=== PATIENT | male | born 1965 | race Caucasian/White ===

== ENCOUNTER 2016-08-20 14:47 | Emergency (ER) | payer MEDICARE, SELFPAY ==
[2016-08-20 14:58] VITALS: BP 130/87
[2016-08-20] MEDS ORDERED: Aspirin 81 MG Tab.Chew PO ONE (15:22)
--- NOTE | 2016-08-20 15:26 | EDM.PDOC ---
ED HPI GENERAL MEDICAL PROBLEM - General Chief Complaint: Chest Pain Stated Complaint: JAW AND CHEST PAIN Time Seen by Provider: 08/20/16 15:10 Source of Information: Reports: Patient History Limitations: Reports: No Limitations - History of Present Illness INITIAL COMMENTS - FREE TEXT/NARRATIVE: 51-year-old male presents to the ED with 2 problems. One is diffuse jaw pain for the last 2 weeks particularly noted to be coming from his right temporomandibular joint area. It is very painful and is finding that he can hardly open his jaw at times because of the pain. He presents also for evaluation of left precordial chest discomfort. 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 He is now somewhat better but still present rates it as a 1 /10 left precordium. The nurses have done an ECG which shows sinus rhythm at 76 per minute with a diffuse early repolarization pattern. No obvious ischemia is evident. There is no history of coronary disease. He has never been a smoker. He does not radiate into her shoulder back neck et cetera. Patient denies any recent dental work to account for his temporomandibular joint pain. No blunt trauma to the mandible. Onset: Today (Chest pain today), Other (Pain is been present for about 2 weeks worse in the right side as compared to the left.) Onset Date: 08/20/16 Onset Time: 10:00 Duration: Hour(s):, Constant (Mild.), Improving Location: Reports: Chest (Left lower precordial chest.), Other (Second problem is right inframandibular joint area and mandible.) Quality: Reports: Ache, Pressure Severity: Moderate Improves with: Reports: Other (Not talking or chewing on the right side. Chest pain seems to be better since he stopped working today.) Worsens with: Reports: Other (Jaw pain is worse with talking and with chewing.) Context: Denies: Activity, Exercise, Lifting, Sick Contact, Trauma, Other Associated Symptoms: Reports: Chest Pain. Denies: No Other Symptoms, Confusion (See history of present), Cough, cough w sputum, Diaphoresis, Fever/Chills, Headaches, Loss of Appetite, Malaise, Nausea/Vomiting, Rash, Seizure, Shortness of Breath, Syncope, Weakness Oral/Mouth Pain Score (Numeric/FACES): 8 - Related Data Allergies Allergy/AdvReac Type Severity Reaction Status Date / Time No Known Allergies Allergy Verified 08/20/16 14:58 Home Meds: Home Meds Dexmethylphenidate HCl [Focalin] 10 mg PO DAILY 08/20/16 [History] Meloxicam 15 mg PO DAILY #14 tablet 08/20/16 [Rx] PARoxetine HCl [Paxil] 30 mg PO DAILY 08/20/16 [History] Prednisone [IMW: predniSONE] 20 mg PO ASDIRECTED #15 tab 08/20/16 [Rx] Ziprasidone HCl [Geodon] 60 mg PO BEDTIME 08/20/16 [History] traZODone HCl [Trazodone HCl] 100 mg PO BEDTIME 08/20/16 [History] Past Medical History Musculoskeletal History: Reports: Other (See Below) Other Musculoskeletal History: ruptured disc in upper neck Psychiatric History: Reports: ADD Social & Family History - Family History Family Medical History: Noncontributory - Tobacco Use Smoking Status *Q: Never Smoker - Recreational Drug Use Recreational Drug Use: No - Living Situation & Occupation Living situation: Reports: Single Occupation: Employed ED ROS GENERAL - Review of Systems Review Of Systems: See Below Constitutional: Denies: Fever, Chills, Malaise, Weakness, Fatigue, Night Sweats , Diaphoresis, Decreased Appetite, Weight Loss HEENT: Reports: Ear Pain (Right pain from temporomandibular joint area.) Respiratory: Denies: Shortness of Breath, Wheezing, Pleuritic Chest Pain, Cough , Sputum Cardiovascular: Reports: Chest Pain (See history of present illness left precordial chest discomfort which he describes as a mild heaviness.). Denies: Blood Pressure Problem, Claudication, Dyspnea on Exertion, Edema, Lightheadedness, Orthopnea, Palpitations, PND Endocrine: Reports: No Symptoms GI/Abdominal: Reports: No Symptoms : Reports: No Symptoms Musculoskeletal: Reports: Back Pain (Ashutosh back shoulder) Skin: Reports: No Symptoms ( and knee pain) Neurological: Reports: No Symptoms ED EXAM, GENERAL - Physical Exam Exam: See Below Exam Limited By: No Limitations General Appearance: Alert, WD/WN, No Apparent Distress, Anxious (Mildly anxious. ) Eye Exam: Bilateral Eye: Normal Inspection Ears: Normal External Exam, Other (History impaction in the left ear and I was unable to visualize the tympanic membrane.) Ear Exam: Bilateral Ear: Other (Patient has severe pain on palpation of the right temporomandibular joint area.) Throat/Mouth: Normal Inspection, Normal Lips, Normal Oropharynx, Other (Patient is missing the right lower second and third molars. 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.) Head: Atraumatic, Other Neck: Normal Inspection, Supple, Non-Tender, Full Range of Motion Respiratory/Chest: No Respiratory Distress, Lungs Clear, Normal Breath Sounds, No Accessory Muscle Use, Chest Non-Tender Cardiovascular: Normal Peripheral Pulses, Regular Rate, Rhythm, No Edema, No Gallop, No Murmur, No Rub, Other (No chest wall pain identified.) Peripheral Pulses: 1+: Posterior Tibial (L), Posterior Tibial (R), Dorsalis Pedis (L), Dorsalis Pedis (R), 2+: Carotid (L), Carotid (R) GI/Abdominal: Normal Bowel Sounds, Soft, Non-Tender, No Organomegaly, No Distention, Other (No previous abdominal surgery.) Back Exam: Normal Inspection, Full Range of Motion. No: CVA Tenderness (L), CVA Tenderness (R) Extremities: Normal Inspection, Normal Range of Motion, Non-Tender, No Pedal Edema, Normal Capillary Refill, Pedal Edema Neurological: Alert, Oriented, CN II-XII Intact, Normal Cognition, Normal Gait, Normal Reflexes Psychiatric: Normal Affect Skin Exam: Warm, Dry, Intact, Normal Color, No Rash EKG INTERPRETATION EKG Date: 08/20/16 Time: 14:55 Rhythm: NSR Rate (beats/min): 76 [place]: normal P-wave: present QRS: normal ST-T: other (There is a diffuse early repolarization pattern throughout all leads.) QT: normal Course - Vital Signs Last Recorded V/S: Last Vital Signs Temp 36.8 C 08/20/16 14:52 Pulse 75 08/20/16 14:52 Resp 18 08/20/16 14:52 BP 130/87 08/20/16 14:52 Pulse Ox 98 08/20/16 16:00 - Orders/Labs/Meds Orders: Active Orders 24 hr Category Date Time Status EKG Documentation Completion [RC] STAT Care 08/20/16 15:21 Active Labs: Laboratory Tests 08/20/16 08/20/16 Range/Units 15:36 15:36 WBC 7.88 (4.23-9.07) K/mm3 RBC 5.16 (4.63-6.08) M/mm3 Hgb 15.3 (13.7-17.5) gm/L Hct 44.6 (40.1-51.0) % MCV 86.4 (79.0-92.2) fl MCH 29.7 (25.7-32.2) pg MCHC 34.3 (32.2-35.5) g/dl RDW Std Deviation 40.6 (35.1-43.9) fL Plt Count 258 (163-337) K/mm3 MPV 10.4 (9.4-12.3) fl Neutrophils % (Manual) 73 H (40-60) % Band Neutrophils % 0 (0-10) % Lymphocytes % (Manual) 17 L (20-40) % Atypical Lymphs % 0 % Monocytes % (Manual) 10 (2-10) % Eosinophils % (Manual) 0 L (0.8-7.0) % Basophils % (Manual) 0 L (0.2-1.2) Platelet Estimate Adequate Plt Morphology Comment Normal RBC Morph Comment Normal Sodium 141 (136-145) mEq/L Potassium 4.2 (3.5-5.1) mEq/L Chloride 104 (98-107) mEq/L Carbon Dioxide 25 (21-32) mEq/L Anion Gap 16.2 H (5-15) BUN 19 H (7-18) mg/dL Creatinine 1.3 (0.7-1.3) mg/dL Est Cr Clr Drug Dosing 67.23 mL/min Estimated GFR (MDRD) 58 (>60) mL/min BUN/Creatinine Ratio 14.6 (14-18) Glucose 98 (74-106) mg/dL Calcium 9.0 (8.5-10.1) mg/dL Total Bilirubin 0.3 (0.2-1.0) mg/dL AST 21 (15-37) U/L ALT 36 (16-63) U/L Alkaline Phosphatase 63 (46-116) U/L CK-MB (CK-2) 2.6 (0-3.6) ng/ml Troponin I < 0.017 (0.00-0.056) ng/mL C-Reactive Protein < 0.2 (<1.0) mg/dL Total Protein 7.6 (6.4-8.2) g/dl Albumin 4.4 (3.4-5.0) g/dl Globulin 3.2 gm/dL Albumin/Globulin Ratio 1.4 (1-2) Meds: Medications Discontinued Medications Generic Name Dose Route Start Last Admin Trade Name Donaldo PRN Reason Stop Dose Admin Aspirin 324 mg 08/20/16 15:22 08/20/16 15:34 Aspirin PO 08/20/16 15:23 324 mg ONETIME ONE Administration - Radiology Interpretation Free Text/Narrative:: 51-year-old male presents to the ED for evaluation of left precordial chest discomfort which he described as a heaviness and has been present since at least 10:00 this morning. He states since she's not working right now or not working as hard is better it's about 1/10. His ECG shows a sinus rhythm at 76 per minute without any ischemic changes. He has no history of coronary disease. His second problem which is more important to the patient in severe pain in his right mandible and eri-face. Clinically he has temporomandibular joint inflammation on the right side with exquisite pain on palpation to this area minimal pain on the left side. He is going to have problems but as he is missing his right lower teeth. He therefore has some malocclusion which is contributing to TMJ strain on the right side. Plan one view chest x-ray routine labs to include cardiac markers to be done. Given 324 mg aspirin chewed. - Re-Assessments/Exams Free Text/Narrative Re-Assessment/Exam: 08/20/16 15:56 chest x-ray done portably reveals mildly hyperinflated lungs. He has deep costovertebral angles. Cardiac silhouette is within normal limits. 08/20/16 16:24 labs are back. White count 7.8 with 73% neutrophils and no bands. Hemoglobin is 15.3 hematocrit of 44.6. Platelets 258,000. Chemistry is completely normal other than a mildly elevated anion gap at 16.2. Cardiac markers are normal. This will therefore be discharged home. Chest pain is noncardiac in origin and likely chest wall in origin. He does have significant temporomandibular joint strain on the right side due to malocclusion. Going to place him on prednisone 20 mg twice daily for 5 days then once daily in the morning for another 5 days to reduce pain and inflammation in the joint. Also more meloxicam 15 mg once daily. Also advised total one margin see if he can find a bite block that fits over his lower teeth to wear only at bedtime to prevent bruxism. Departure - Departure Time of Disposition: 16:25 Disposition: Home, Self-Care 01 Condition: fair Clinical Impression: Non-cardiac chest pain, Sprain and strain of temporomandibular joint Prescriptions: Meloxicam 15 mg PO DAILY #14 tablet Prednisone [IMW: predniSONE] 20 mg PO ASDIRECTED #15 tab Instructions: Nonspecific Chest Pain, [id number] Referrals: Gómez Ambrose MD [Primary Care Provider] - Forms: ED Department Discharge Additional Instructions: Evaluation in the emergency room today in regards to left precordial anterior chest discomfort that started this morning while at work. Lab work was compared out and was completely normal with negative enzymes suggesting no evidence of heart related illness. ECG and chest x-ray were also normal. Second problem is right temporomandibular joint inflammations strain I did believe secondary to bruxism and malocclusion as you're missing a matching molar on the right lower jaw. This has caused a marked inflammation of the right temporomandibular joint similar to her arthritis would be in a knee or ankle. Suggest point Pooja she did purchase a bite block that is over your lower teeth to wear at bedtime so that it will not allow you to have bruxism but the joint rest and settle down over the next 2-3 weeks. I also prescribed meloxicam 15 mg once daily as an anti-inflammatory pain killer state once daily in the morning and prednisone initially at one tablet twice daily with breakfast and supper for 5 days then one tablet only in the morning for 5 days to reduce inflammation. - My Orders Last 24 Hours: My Active Orders 08/20/16 15:21 EKG Documentation Completion [RC] STAT - Assessment/Plan Last 24 Hours: My Active Orders 08/20/16 15:21 EKG Documentation Completion [RC] STAT
--- NOTE | 2016-08-21 07:35 | CR ---
Chest: Portable view of the chest was obtained. Comparison: No previous study. Heart size and mediastinum are normal. Lungs are clear. Bony structures are grossly intact. Impression: 1. Nothing acute is seen on portable chest x-ray. Diagnostic code #1
== END 2016-08-20 16:39 | disposition home or self-care (01) ==
LOC: JD.ED 14:47
DX: R07.89 Other chest pain (principal); S03.41XA Sprain of jaw, right side, initial encounter; Z79.899 Other long term (current) drug therapy
CPT/HCPCS: 36415; 71010; 80053; 82553; 84484; 85025; 86140; 93005; 99285; A9270; 99284